=== PATIENT | female | born 1955 | race Caucasian/White ===

== ENCOUNTER → 2017-04-15 | Outpatient (CLI) | payer BC ==
--- NOTE | 2017-04-20 08:12 | MM ---
Reason for exam: screening (asymptomatic). History: Patient is postmenopausal. Physical Findings: A clinical breast exam by your physician is recommended on an annual basis and results should be correlated with mammographic findings. MG Screening Mammo w CAD Bilateral CC and MLO view(s) were taken. No prior studies available for comparison. The breast tissue is almost entirely fat. There is no discrete abnormality. ASSESSMENT: Benign, BI-RAD 2 RECOMMENDATION: Routine screening mammogram of both breasts in 1 year.
== END | disposition home or self-care (01) ==
LOC: RADMAMWWP 14:39
PROVIDERS: ATTEND Family Medicine
DX: Z12.31 Encounter for screening mammogram for malignant neoplasm of breast (principal)

== ENCOUNTER → 2017-06-23 | Day surgery (SDC) | payer BC ==
[2017-06-22 08:55] VITALS: BMI 40.5
[~2017-06-23] MED LIST: LACTATED RINGERS 1,000 ML IV SCH; LIDOCAINE 1% 20 ML VIAL (10MG/ML) FOR IV START INTRADERMA ONE; LIDOCAINE 1% INJ 10MG/ML (20 ML MDV) ONE; PROPOFOL 10 MG/ML 20 ML VIAL IV ONE
--- NOTE | 2017-06-23 08:51 | P.GSHP ---
History of Present Illness H&P Date: 06/23/17 CHIEF COMPLAINT: Colon screen HISTORY OF PRESENT ILLNESS: The patient is a 61-year-old female who presents for colon screen. Lower endoscopy was offered for further evaluation and management. PAST MEDICAL HISTORY: Please see list. PAST SURGICAL HISTORY: Please see list. MEDICATIONS: Please see list. ALLERGIES: Please see list. SOCIAL HISTORY: No illicit drug use FAMILY HISTORY: No reports of Crohn disease or ulcerative colitis. REVIEW OF ORGAN SYSTEMS: CONSTITUTIONAL: No reports of fevers or chills. PHYSICAL EXAM: VITAL SIGNS: Stable GENERAL: Well-developed pleasant in no acute distress. HEENT: No scleral icterus. Extraocular movements grossly intact. Moist buccal mucosa. NECK: Supple without lymphadenopathy. CHEST: Unlabored respirations. Equal bilateral excursions. CARDIOVASCULAR: Regular rate and rhythm. Distal 2+ pulses. ABDOMEN: Soft, nontender, nondistended. MUSCULOSKELETAL: No clubbing, cyanosis, or edema. ASSESSMENT: 1. Colon screen. PLAN: 1. Recommend proceeding with a lower endoscopy Past Medical History Past Medical History: Diabetes Mellitus History of Any Multi-Drug Resistant Organisms: None Reported Past Surgical History: Orthopedic Surgery Additional Past Surgical History / Comment(s): FOOT SPUR, RIGHT ROTATOR CUFF, THUMB-TRIGGER. Past Anesthesia/Blood Transfusion Reactions: No Reported Reaction Past Psychological History: No Psychological Hx Reported Smoking Status: Never smoker Past Alcohol Use History: None Reported Past Drug Use History: None Reported - Past Family History Brother(s) Family Medical History: Cancer Additional Family Medical History / Comment(s): THROAT CANCER Sister(s) Family Medical History: Cancer Additional Family Medical History / Comment(s): LUNG CANCER Medications and Allergies Home Medications Medication Instructions Recorded Confirmed Type Hydrochlorothiazide 25 mg PO QAM 01/06/16 06/23/17 History metFORMIN HCL [Glucophage] 500 mg PO BID 06/23/17 06/23/17 History Allergies Allergy/AdvReac Type Severity Reaction Status Date / Time No Known Allergies Allergy Verified 06/22/17 08:41
[2017-06-23 08:52] VITALS: TEMP 98.1
[2017-06-23 09:06] LABS: Glucose,Whole Blood 128 mg/dL (75-99)
--- NOTE | 2017-06-23 09:43 | P.PCN ---
Date of Procedure: 06/23/17 Description of Procedure: PREOPERATIVE DIAGNOSIS: Colonoscopy screening. POSTOPERATIVE DIAGNOSIS: Colonoscopy screening, high risk. External hemorrhoids, grade 4. Family history of colon polyps. OPERATION: Colonoscopy to the ileocecal valve and appendiceal orifice. SURGEON: Fely Lang MD. ANESTHESIA: MAC. INDICATIONS: The patient is a 61-year-old female who presents for colonoscopy screening. Benefits and risks were described and informed consent was obtained. DESCRIPTION OF PROCEDURE: The patient had undergone Gatorade, MiraLAX and Dulcolax prep. She had been brought into the operating room and laid in the left lateral decubitus position. After adequate intravenous sedation, the rectum was examined with 2% lidocaine jelly. External hemorrhoids were encountered. The rectal tone was within normal limits. No lesions were palpated in the rectal vault. An Olympus colonoscope was advanced until the ileocecal valve and appendiceal orifice were clearly viewed. The prep was excellent with clear visualization of the mucosal folds. The scope was removed with visualization of each mucosal fold. The large colon diverticuli were found. No colonic polyps were found. No evidence of focal colitis was found. Retroflexion of the scope demonstrated grade 3 internal hemorrhoids without active bleeding or inflammation. The colon was desufflated. The patient had tolerated the procedure well. Withdrawal time was over 6 minutes. FINDINGS: Internal hemorrhoids, grade 1 External prolapsed hemorrhoids, grade 4. No arteriovenous malformations. No adenomatous polyps. No focal colitis. RECOMMENDATIONS: Lower endoscopy in 5 years, 2021, per screening guidelines for family history of colon polyps or cancer. Plan - Discharge Summary Discharge Rx Participant: No New Discharge Prescriptions: No Action Hydrochlorothiazide 25 mg PO QAM metFORMIN HCL [Glucophage] 500 mg PO BID Discharge Medication List Hydrochlorothiazide 25 mg PO QAM 01/06/16 [History] metFORMIN HCL [Glucophage] 500 mg PO BID 06/23/17 [History] Follow up Appointment(s)/Referral(s): Fely Lang MD [STAFF PHYSICIAN] - As Needed Patient Instructions/Handouts: *[facility] - (Anesthesia) Endoscopy Discharge Instructions Activity/Diet/Wound Care/Special Instructions: Repeat colonoscopy in 5 years, 2021. Discharge Disposition: HOME SELF-CARE
[2017-06-23 10:06] VITALS: BP 118/62; PULSE 72; RESP 18
== END | disposition home or self-care (01) ==
LOC: ORWHC2ENDO 08:17
PROVIDERS: ATTEND Surgery Plastic and Reconstructive Surgery
DX: Z12.11 Encounter for screening for malignant neoplasm of colon (principal); K64.3 Fourth degree hemorrhoids; Z83.71 Family history of colonic polyps; E11.9 Type 2 diabetes mellitus without complications; I10 Essential (primary) hypertension; Z79.84 Long term (current) use of oral hypoglycemic drugs; Z79.899 Other long term (current) drug therapy
CPT/HCPCS: J2001; J2704; G0105; 45378

== ENCOUNTER → 2017-12-03 | Outpatient (CLI) | payer BC ==
--- NOTE | 2017-12-03 16:08 | XR ---
Lumbar spine HISTORY: Low back pain 3 views of the lumbar spine No comparisons There is a dextroscoliosis centered at L2. Multilevel spondylosis is present. Calcification is superi mposed over the left kidney measuring approximately 17 mm in greatest dimension. Minimal anterolisthe sis grade 1 L5-S1, retrolisthesis grade 1 L4-5 and L2-3. Loss of disc height present at the intervert ebral levels, there is vacuum phenomenon at L4-5. Sclerosis present in the posterior elements of the lower lumbar spine. Bone mineralization is reduced. IMPRESSION: Degenerative disc disease, facet arthropathy. Scoliosis. Left-sided nephrolithiasis.
== END ==
LOC: RADXRMAIN 14:21
PROVIDERS: ATTEND Family Medicine
DX: M51.36 Other intervertebral disc degeneration, lumbar region (principal); M46.96 Unspecified inflammatory spondylopathy, lumbar region; M41.9 Scoliosis, unspecified; N20.0 Calculus of kidney
CPT/HCPCS: 72100

== ENCOUNTER → 2018-08-08 | Outpatient (CLI) | payer BC ==
--- NOTE | 2018-08-11 10:42 | MM ---
Reason for exam: screening (asymptomatic). Last mammogram was performed 1 year and 4 months ago. History: Patient is postmenopausal. Physical Findings: A clinical breast exam by your physician is recommended on an annual basis and results should be correlated with mammographic findings. MG Screening Mammo w CAD Bilateral CC, MLO, and XCCL view(s) were taken. Prior study comparison: April 15, 2017, bilateral MG screening mammo w CAD. There are scattered fibroglandular densities. Stable benign calcifications in the left breast. There is no discrete abnormality. No significant changes when compared with prior studies. ASSESSMENT: Benign, BI-RAD 2 RECOMMENDATION: Routine screening mammogram of both breasts in 1 year.
== END | disposition home or self-care (01) ==
LOC: RADMAMWWP 08:02
PROVIDERS: ATTEND Family Medicine
DX: Z12.31 Encounter for screening mammogram for malignant neoplasm of breast (principal)
CPT/HCPCS: 77067

== ENCOUNTER → 2019-07-11 | Outpatient (CLI) | payer BC ==
[2019-07-11 15:02] LABS: Basophils # (A) 0.2 k/uL (0-0.2); Basophils % (A) 3 %; Eosinophils # (A) 0.2 k/uL (0-0.7); Eosinophils % (A) 3 %; HGB 13.1 gm/dL (11.4-16.0); Lymphocytes # (A) 2.3 k/uL (1.0-4.8); Lymphocytes % (A) 30 %; MCH 29.8 pg (25.0-35.0); MCHC 32.7 g/dL (31.0-37.0); MCV 91.1 fL (80.0-100.0); Mean Platelet Volume 7.4; Monocytes # (A) 0.3 k/uL (0-1.0); Monocytes % (A) 4 %; Neutrophils # (A) 4.5 k/uL (1.3-7.7); Neutrophils % (A) 59 %; Platelet Count 320 k/uL (150-450); RBC 4.39 m/uL (3.80-5.40); RDW 12.5 % (11.5-15.5); WBC 7.7 k/uL (3.8-10.6)
[2019-07-11 15:09] LABS: Albumin 4.5 g/dL (3.5-5.0); Calcium 10.2 mg/dL (8.4-10.2); Potassium 4.4 mmol/L (3.5-5.1); Total Bilirubin 0.4 mg/dL (0.2-1.3); Total Protein 7.5 g/dL (6.3-8.2)
--- NOTE | 2019-07-12 04:49 | CT ---
EXAMINATION TYPE: CT pelvis wo/w con DATE OF EXAM: 07/11/2019 COMPARISON: NONE HISTORY: 63-year-old female LLQ pain TECHNIQUE: Contiguous axial scanning of the pelvis before and after administration of 100 ml Isovue 3 00 IV contrast. Delayed images through the pelvis and coronal/sagittal reconstructions performed. CT DLP: 1722.9 mGycm Automated exposure control for dose reduction was used. FINDINGS: Visualized lower abdomen shows a normal appendix. Scattered mild stool. Mild diverticular change with in the visualized colon. No lower abdominal mesenteric or retroperitoneal or pelvic lymphadenopathy is identified. No dilated small bowel or free air. Bladder is urine distended. Uterus anteverted. Both ovaries are visualized. No abnormal fluid collect ion in the pelvis. Bones: Moderate degenerative disc disease L4-L5 with mild disc height loss, bulging disc, and vacuum phenomenon particularly towards the right. There is a degenerated levoconvex curvature. Facet arthrop athy towards the right. Benign-appearing focal sclerosis anterior aspect of the medial right iliac kortney ne suggesting a bone island. IMPRESSION: 1. SCATTERED MILD DIVERTICULOSIS ALONG THE VISUALIZED COLON WITHOUT ACUTE DIVERTICULITIS. 2. NO ADNEXAL ABNORMALITY OR PELVIC FREE FLUID. 3. DEGENERATIVE LEVOCONVEX SCOLIOTIC CURVATURE OF THE VISUALIZED LOWER LUMBAR SPINE.
== END ==
LOC: RADCTMAIN 14:29
PROVIDERS: ATTEND Family Medicine
DX: K57.30 Diverticulosis of large intestine without perforation or abscess without bleeding (principal); R10.32 Left lower quadrant pain
CPT/HCPCS: 80053; 83690; 85025; 72194; 36415; Q9967

== ENCOUNTER → 2021-02-04 | Outpatient (CLI) | payer BC ==
[2021-02-04 17:51] LABS: African American GFR (CKD) >90 (>60 ml/min/1.73 sqM); Blood Urea Nitrogen 18 mg/dL (7-17); Non-African American GFR(CKD) 87 (>60 ml/min/1.73 sqM)
--- NOTE | 2021-02-06 17:12 | CT ---
EXAMINATION TYPE: CT abdomen pelvis wo/w con DATE OF EXAM: 02/04/2021 COMPARISON: CT pelvis 07/11/2019 HISTORY: LLQ pain CT DLP: 2733.4 mGycm Automated exposure control for dose reduction was used. TECHNIQUE: Helical acquisition of images was performed from the lung bases through the pelvis. CONTRAST: Performed with Oral Contrast and without and with IV Contrast, patient injected with 100 mL of Isovue 300. Patient received oral contrast. FINDINGS: LUNG BASES: No significant abnormality is appreciated. LIVER/GB: Patient is post cholecystectomy. No evident liver mass. PANCREAS: No significant abnormality is seen. SPLEEN: No significant abnormality is seen. ADRENALS: No significant abnormality is seen. KIDNEYS: Left kidney shows a calcification at the level of the renal pelvis measuring 2 cm in cephala d to caudal dimension by 17 mm in transverse dimension by 13 mm in AP dimension, fatty lesion is pres ent at the upper pole measuring 17 mm, likely angiomyolipoma, no hydronephrosis bilaterally. FREE AIR: No free air is visualized. RETROPERITONEAL ADENOPATHY: None visualized REPRODUCTIVE ORGANS: No significant abnormality is seen URINARY BLADDER: No significant abnormality is seen. PELVIC ADENOPATHY: None visualized. OSSEOUS STRUCTURES: Degenerative disc changes, facet arthropathy, spinal curvature noted in the lumb ar spine, retrolisthesis grade 1 L3-4, L2-3 BOWEL: Diverticular changes associated with the colon in the sigmoid region, contrast has not filled the colon time of the exam. OTHER: IMPRESSION: DIVERTICULOSIS. NONOBSTRUCTIVE LEFT RENAL PELVIC CALCULUS, DEGENERATIVE DISC DISEASE AND FACET ARTHRO DIANN, SPONDYLOLISTHESIS.
== END | disposition home or self-care (01) ==
LOC: RADCTMAIN 16:37
PROVIDERS: ATTEND Family Medicine
DX: K57.30 Diverticulosis of large intestine without perforation or abscess without bleeding (principal); N20.0 Calculus of kidney; M51.36 Other intervertebral disc degeneration, lumbar region; M47.816 Spondylosis without myelopathy or radiculopathy, lumbar region; M43.16 Spondylolisthesis, lumbar region
CPT/HCPCS: 82565; 84520; 74178; 36415; Q9967

== ENCOUNTER → 2021-02-25 | Outpatient (CLI) | payer BC ==
--- NOTE | 2021-02-26 09:15 | MM ---
Reason for exam: screening (asymptomatic). Last mammogram was performed 1 year and 5 months ago. History: Patient is postmenopausal. Took hormonal contraceptives for 2 years. Physical Findings: A clinical breast exam by your physician is recommended on an annual basis and results should be correlated with mammographic findings. MG Screening Mammo w CAD Bilateral CC, MLO, and XCCL view(s) were taken. Prior study comparison: September 21, 2019, bilateral MG screening mammo w CAD. August 08, 2018, bilateral MG screening mammo w CAD. There are scattered fibroglandular densities. There is chronic nodularity bilaterally. There is no dominant lesion. No significant changes when compared with prior studies. ASSESSMENT: Benign, BI-RAD 2 RECOMMENDATION: Routine screening mammogram of both breasts in 1 year.
== END | disposition home or self-care (01) ==
LOC: RADMAMWWP 08:32
PROVIDERS: ATTEND Family Medicine
DX: Z12.31 Encounter for screening mammogram for malignant neoplasm of breast (principal); Z78.0 Asymptomatic menopausal state; Z79.3 Long term (current) use of hormonal contraceptives
CPT/HCPCS: 77067

== ENCOUNTER → 2022-06-18 | Outpatient (CLI) | payer MEDICARE ==
--- NOTE | 2022-06-19 08:27 | MM ---
Reason for Exam: Screening (asymptomatic). Last mammogram was performed 1 year(s) and 4 month(s) ago. Patient History: Menarche at age 16. First Full-Term at age 31. Late child-bearing (after 31). Postmenopausal. Patient used Hormonal Contraceptives for 2 years. Risk Values: Marta 5 year model risk: 2.1%. NCI Lifetime model risk: 7.8%. Prior Study Comparison: 08/08/2018 Bilateral Screening Mammogram, [facility]. 09/21/2019 Bilateral Screening Mammogram, [facility]. 02/25/2021 Bilateral Screening Mammogram, [facility]. Tissue Density: The breast tissue is almost entirely fat. Findings: Analyzed By CAD. There is no suspicious group of microcalcifications or new suspicious mass in either breast. Overall Assessment: Negative, BI-RAD 1 Management: Screening Mammogram of both breasts in 1 year. A clinical breast exam by your physician is recommended on an annual basis and results should be correlated with mammographic findings. Electronically signed and approved by: Luca Caballero M.D. Radiologis
== END | disposition home or self-care (01) ==
LOC: RADMAMWWP 16:06
PROVIDERS: ATTEND Family Medicine
DX: Z12.31 Encounter for screening mammogram for malignant neoplasm of breast (principal); Z78.0 Asymptomatic menopausal state
CPT/HCPCS: 77063; 77067

== ENCOUNTER → 2023-04-07 | Outpatient (CLI) | payer MEDICARE ==
[2023-04-07 16:13] LABS: Appearance,Urine Clear (Clear); Bilirubin,Urine Negative (Negative); Blood,Urine Negative (Negative); Color,Urine Yellow (Yellow); Ketones,Urine Negative (Negative); Nitrite,Urine Negative (Negative); Urobilinogen,Urine 0.2 E.U./DL
[2023-04-07 16:26] LABS: Bacteria,Urine 2+ (None Seen); Basophils # (A) 0.04 X 10*3/uL (0.00-0.10); Basophils % (A) 0.8 %; Eosinophils # (A) 0.11 X 10*3/uL (0.04-0.35); Eosinophils % (A) 2.2 %; HCT 37.9 % (37.2-46.3); HGB 12.7 d/dL (12.0-15.0); Lymphocytes # (A) 2.06 X 10*3/uL (0.90-5.00); Lymphocytes % (A) 41.1 %; MCH 30.6 pg (27.0-32.0); MCHC 33.5 d/dL (32.0-37.0); MCV 91.3 FL (80.0-97.0); Mean Platelet Volume 11.4 FL (9.5-12.2); Monocytes # (A) 0.45 X 10*3/uL (0.20-1.00); NRBC Per 100 WBC 0 X 10*3/uL (0.00-0.01); Neutrophils # (A) 2.34 X 10*3/uL (1.80-7.70); Neutrophils % (A) 46.7 %; Platelet Count 256 X 10*3/uL (140-440); RBC 4.15 X 10*6/uL (4.10-5.20); RDW 12.7 % (11.5-14.5); Uric Acid Crystals,Urine Present; WBC 5.01 X 10*3/uL (4.50-10.00)
[2023-04-07 16:31] LABS: Blood Urea Nitrogen 20.4 mg/dL (9.0-27.0); Calcium 9.9 mg/dL (8.7-10.3); Carbon Dioxide 26.3 mmol/L (21.6-31.8); Chloride 102 mmol/L (96-109); Glucose 106 mg/dL (70-110); Sodium 138 mmol/L (135-145)
== END | disposition home or self-care (01) ==
LOC: LABPAT 09:10
PROVIDERS: ATTEND Urology
DX: Z01.812 Encounter for preprocedural laboratory examination (principal); N20.0 Calculus of kidney; R31.29 Other microscopic hematuria
CPT/HCPCS: 36415; 80048; 81001; 85025; 87086

== ENCOUNTER 2023-04-14 06:03 | Day surgery (SDC) | payer MEDICARE ==
--- NOTE | 2023-04-13 12:51 | P.GSHP ---
History of Present Illness H&P Date: 04/13/23 7 yo female with a large[>2cm] lt renal stone causing pain an obstruction. SHe comes for a left pcnl. The risks an alternatives have been discussed. - Constitutional Constitutional: Denies chills, Denies fever - EENT Eyes: denies blurred vision, denies pain Ears, nose, mouth and throat: Denies headache, Denies sore throat - Cardiovascular Cardiovascular: Denies chest pain, Denies shortness of breath - Respiratory Respiratory: Denies cough, Denies 7 - Gastrointestinal Gastrointestinal: Denies abdominal pain, Denies diarrhea, Denies nausea, Denies vomiting - Genitourinary (Female) Genitourinary: Denies dysuria, Denies hematuria - Genitourinary (Male) Genitourinary: Denies dysuria, Denies hematuria - Musculoskeletal Musculoskeletal: Denies myalgias - Integumentary Integumentary: Denies pruritus, Denies rash - Neurological Neurological: Denies numbness, Denies weakness - Psychiatric Psychiatric: Denies anxiety, Denies depression - Endocrine Endocrine: Denies fatigue, Denies weight change Past Medical History Past Medical History: Diabetes Mellitus, Hyperlipidemia Additional Past Medical History / Comment(s): kideny stones History of Any Multi-Drug Resistant Organisms: None Reported Past Surgical History: Section, Cholecystectomy, Orthopedic Surgery, Tonsillectomy Additional Past Surgical History / Comment(s): FOOT SPUR, RIGHT ROTATOR CUFF, THUMB-TRIGGER. Past Anesthesia/Blood Transfusion Reactions: No Reported Reaction Smoking Status: Never smoker - Past Family History Father Family Medical History: Myocardial Infarction ([place]) Mother Family Medical History: Congestive Heart Failure (CHF) Brother(s) Family Medical History: Cancer Additional Family Medical History / Comment(s): THROAT CANCER Sister(s) Family Medical History: Cancer Additional Family Medical History / Comment(s): LUNG CANCER Medications and Allergies Home Medications Medication Instructions Recorded Confirmed Type metFORMIN HCL [Glucophage] 500 mg PO DAILY 06/23/17 04/09/23 History Lisinopril-Hctz 10-12.5 mg 1 tab PO DAILY 04/09/23 04/09/23 History [Zestoretic 10-12.5] Rosuvastatin Calcium 10 mg PO DAILY 04/09/23 04/09/23 History Allergies Allergy/AdvReac Type Severity Reaction Status Date / Time No Known Allergies Allergy Verified 04/09/23 10:59 Surgical - Exam - General well developed, well nourished, no distress - Eyes normal ocular movement, no icteric - ENT no hearing loss, no congestion - Neck no masses, trachea midline - Respiratory normal respiratory effort, clear to auscultation - Abdomen Abdomen: soft, non tender, no guarding, no rigid, no rebound - Integumentary no rash, no abnormal pigmentation - Neurologic no disoriented, no combative - Psychiatric oriented to time, oriented to person, oriented to place, speech is normal, memory intact Results - Imaging Abdominal x-ray: report reviewed, image reviewed CT scan - abdomen: report reviewed, image reviewed CT scan - pelvis: report reviewed, image reviewed Assessment and Plan Assessment: Impression: left renal stone, large. Plan: left pcnl
--- NOTE | 2023-04-14 06:46 | XR ---
EXAMINATION TYPE: XR KUB DATE OF EXAM: 04/14/2023 6:19 AM CLINICAL HISTORY: Left renal calculus TECHNIQUE: Single supine KUB image of the abdomen is obtained. COMPARISON: CT abdomen and pelvis February 04, 2021. FINDINGS: Dominant 2.7 cm calculus left kidney L2-L3 level is increased in size from prior CT. No rig ht-sided nephrolithiasis. Overall nonobstructive bowel gas pattern. Cholecystectomy clips are redemonstrated. There is scoliosi s and multilevel spurring and disc space narrowing in the lumbar spine. IMPRESSION: As above.
[2023-04-14] MEDS ORDERED: droPERidol 5 MG/2 ML VIAL IVP ONE (06:49)
[2023-04-14] MEDS ORDERED: LIDOCAINE 1% (10MG/ML) FOR IV START INTRADERMA PRN (06:49)
[2023-04-14] MEDS ORDERED: ONDANSETRON 4 MG/2 ML VIAL IVP ONE ×2 (06:49→07:16)
[2023-04-14] MEDS ORDERED: HYDROmorphone 0.5 MG/0.5 ML SYRINGE IVP PRN (07:00)
[2023-04-14 07:11] LABS: Glucose,Whole Blood 117 mg/dL (70-110)
[2023-04-14] MEDS: LACTATED RINGERS 1,000 ML IV SCH (07:16)
[2023-04-14] MEDS ORDERED: DEXAMETHASONE SOD PHOSPHATE 4 MG/ML 1 ML VIAL IVP ONE (07:17)
[2023-04-14] MEDS ORDERED: SUCCINYLCHOLINE CHLORIDE 200 MG/10 ML VIAL IV ONE (07:34)
[2023-04-14] MEDS ORDERED: GLYCOPYRROLATE 0.2 MG/ML 2 ML VIAL ONE (07:34)
[2023-04-14] MEDS ORDERED: WATER FOR INJECTION, STERILE 10 ML VIAL IV ONE (07:34)
[2023-04-14] MEDS ORDERED: MIDAZOLAM 2 MG/2 ML VIAL ONE (07:34)
[2023-04-14] MEDS ORDERED: VASOPRESSIN 20 UNIT/ML 1 ML VIAL ONE (07:34)
[2023-04-14] MEDS ORDERED: fentaNYL (PF) 50 MCG/ML 2 ML AMP ONE (07:34)
[2023-04-14] MEDS ORDERED: PROPOFOL 10 MG/ML 20 ML VIAL IV ONE (07:34)
[2023-04-14] MEDS ORDERED: PHENYLEPHRINE-0.9% NACL SYG 1,000 MCG/10 ML SYRINGE ONE (07:34)
[2023-04-14] MEDS ORDERED: LIDOCAINE 2% INJ 20 MG/ML (2 ML VIAL) ONE (07:34)
[2023-04-14] MEDS ORDERED: IOPAMIDOL-370 100ML BTL MISCELLANE ONE (07:51)
[2023-04-14] MEDS ORDERED: LACTATED RINGERS 1,000 ML IV ONE (08:54)
[2023-04-14] MEDS ORDERED: NALOXONE 0.4 MG/ML 1 ML VIAL IV PRN (09:44)
[2023-04-14] MEDS ORDERED: HYDROmorphone PCA 10 MG/50 ML BAG IV PRN (09:44)
--- NOTE | 2023-04-14 09:47 | FL ---
EXAMINATION TYPE: FL Perc Nephrostomy New Access DATE OF EXAM: 04/14/2023 COMPARISON: NONE HISTORY: Fluoroscopy time TECHNIQUE: Fluoroscopy. FINDINGS: Fluoroscopy time 4.16 DAP provided. IMPRESSION: As Above.
[2023-04-14] MEDS ORDERED: ONDANSETRON 4 MG/2 ML VIAL IVP PRN (09:48)
[2023-04-14] MEDS ORDERED: ACETAMINOPHEN TAB 325 MG TAB PO PRN (09:48)
[2023-04-14] MEDS ORDERED: MAG HYDROX/AL HYDROX/SIMETH 30 ML CUP PO PRN (09:48)
--- NOTE | 2023-04-14 09:55 | P.OP ---
Date of Procedure: 04/14/23 Preoperative Diagnosis: Left renal stone (large greater than 2 cm) Postoperative Diagnosis: Same Procedure(s) Performed: Cystoscopy, left percutaneous nephrostomy (Dr. Edge, percutaneous nephrostolithotomy at ultrasound, placement of 10 J nephrostomy tube left Anesthesia: LORENZO Surgeon: Fletcher Edge Estimated Blood Loss (ml): 300 Pathology: other (Stone) Condition: stable Disposition: PACU Indications for Procedure: Patient is a 2.5 cm left renal pelvic stone with pain and obstruction and she comes for percutaneous nephrostolithotomy alternatives have been discussed Description of Procedure: Patient brought to the operating suite. Given a general anesthetic on the transport gurney. She's placed in a frog position with a sterile prep and drape. Cystoscopy a Foroblique lens and 21-Czech sheath identifies a normal left ureteral orifice. It is intubated with a 5-Czech occluding balloon catheter passed up into the left renal pelvis. It is secured to a 16-Czech Clifton. The patient's placed in a prone position with sterile prep and drape to the left flank. Left Percutaneous access was performed by myself and will be dictated separately. I then dilate the tract to 30-Czech and introduced the working sheath into the middle pole calyx that I have accessed. Introduced the rigid scope into the collecting system. I then with ultrasound break the stone into smaller fragments and grasp the larger fragments and remove them from the c ollecting system. I then pass a flexible scope throughout the collecting system and remove any remaining fragments. At the end of the procedure a 20-Czech reentry left nephrostomy tube was placed. It is secured to the skin with 2-0 silk. The patient is awakened and returned recovery room good condition. She tolerated procedure well blood loss is about 300 mL.
--- NOTE | 2023-04-14 09:58 | P.PCN ---
Date of Procedure: 04/14/23 Preoperative Diagnosis: Left renal stone, large Postoperative Diagnosis: Same Procedure(s) Performed: Left percutaneous nephrostomy access Surgeon: Fletcher Edge Indications for Procedure: The patient comes for left percutaneous nephrostolithotomy and will require percutaneous access Description of Procedure: The patient has been previously prepped and draped and placed in a flank position. I injected air through the ureteral catheter previously placed overlying the collecting system. I first attempted access the lower pole and in the upper pole calyces but I'm unable to do an adequate angle into the collecting system. I then go to the middle pole calyx. I introduced the Chiba needle into the posterior middle pole calyx. Through that the cope wires passed into the collecting system. Over the cope wires and passed a small into introducer/catheter. I then am able to pass an 035 wire down the ureter into the bladder. I removed the introducer catheter and passed a 8 and 10-Central African reentry catheters. I removed the 8 catheter and passed a 035 super stiff wire down into the bladder. Over the superstiff wire then dilate the tract to 30- Central African to introduce the working sheath in the collecting system.
[2023-04-14 10:12] LABS: Glucose,Whole Blood 176 mg/dL (70-110)
[2023-04-14] MEDS: SODIUM CHLORIDE 0.45% 1,000 ML IV SCH ×2 (11:18→22:17)
[2023-04-14] MEDS: KETOROLAC 15 MG/ML 1 ML VIAL IVP PRN (11:47)
[2023-04-14] MEDS ORDERED: DEXTROSE 50% SYRINGE 50 ML IVP PRN ×2 (17:04)
--- NOTE | 2023-04-14 17:07 | P.CONS ---
History of Present Illness - Reason for Consult Consult date: 04/14/23 - History of Present Illness Patient is a 67-year-old female with PMH of diabetes mellitus, hypertension, dyslipidemia that presents to [facility] for elective surgery. She underwent cystoscopy and left percutaneous nephrostomy with Dr. Edge. [facility] has been consulted for medical management of this patient. Patient currently reports well-controlled pain. 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 Currently with Clifton catheter draining 550 mL of urine. Estimated blood loss 300 mL during her procedure. She reports no other complaints. Pertinent positives and negatives as discussed in HPI, a complete review of systems was performed and all other systems are negative. General: non toxic, no distress, appears at stated age Derm: warm, dry Head: atraumatic, normocephalic, symmetric Eyes: EOMI, no lid lag, anicteric sclera Cardiovascular: S1S2 reg, no murmur Lungs: CTA bilateral, no rhonchi, no rales , no accessory muscle use Ext: no gross muscle atrophy, no edema, no contractures Neuro: no focal neuro deficits Psych: Alert, oriented, appropriate affect Diabetes mellitus Hypertension Dyslipidemia Based on my assessment of this patient, this patient meets a moderate complexity level of care. Patient has a chronic diagnosis of diabetes mellitus, hypertension, dyslipidemia. Diabetes mellitus: ISS. Accuchecks ACHS. Hypoglycemic precautions. Metformin 500 mg PO QD. Hypertension: Hold Lisinopril-HCTZ due to borderline low BP. Dyslipidemia: Crestor 10 mg PO QD. SCD for DVT prophylaxis. FULL CODE. Decision maker: Daughter I have reviewed the following staffing consultant notes: Urology operative note and H&P. I have reviewed the results of the following tests: POC glucose ranging from 111-176. I have ordered the following tests: CBC, BMP. I have discussed the care of this patient with the following independent historian: I have independently interpreted the following test below: I have discussed the management of this patient with the following physician: Past Medical History Past Medical History: Diabetes Mellitus, Hyperlipidemia Additional Past Medical History / Comment(s): kideny stones History of Any Multi-Drug Resistant Organisms: None Reported Past Surgical History: Section, Cholecystectomy, Orthopedic Surgery, Tonsillectomy Additional Past Surgical History / Comment(s): FOOT SPUR, RIGHT ROTATOR CUFF, THUMB-TRIGGER. Past Anesthesia/Blood Transfusion Reactions: No Reported Reaction Past Psychological History: No Psychological Hx Reported Smoking Status: Never smoker Past Alcohol Use History: None Reported Past Drug Use History: None Reported - Past Family History Father Family Medical History: Myocardial Infarction ([place]) Mother Family Medical History: Congestive Heart Failure (CHF) Brother(s) Family Medical History: Cancer Additional Family Medical History / Comment(s): THROAT CANCER Sister(s) Family Medical History: Cancer Additional Family Medical History / Comment(s): LUNG CANCER Medications and Allergies Home Medications Medication Instructions Recorded Confirmed Type metFORMIN HCL [Glucophage] 500 mg PO DAILY 06/23/17 04/14/23 History Lisinopril-Hctz 10-12.5 mg 1 tab PO DAILY 04/09/23 04/14/23 History [Zestoretic 10-12.5] Rosuvastatin Calcium 10 mg PO DAILY 04/09/23 04/14/23 History Allergies Allergy/AdvReac Type Severity Reaction Status Date / Time No Known Allergies Allergy Verified 04/14/23 06:54 Physical Exam Vitals: Vital Signs Temp Pulse Pulse Pulse Resp BP BP 04/14/23 12:48 97.6 F 64 16 98/66 04/14/23 12:18 63 16 95/63 04/14/23 11:48 64 16 107/73 04/14/23 11:33 74 16 114/76 04/14/23 11:18 68 16 109/72 04/14/23 11:03 97.1 F L 72 16 112/64 04/14/23 10:33 73 16 104/56 04/14/23 10:19 86 16 105/57 04/14/23 10:03 72 16 110/56 04/14/23 09:48 97 F L 82 16 109/56 04/14/23 07:10 97.0 F L 68 16 127/60 Pulse Ox 04/14/23 12:48 95 04/14/23 12:18 97 04/14/23 11:48 98 04/14/23 11:33 88 L 04/14/23 11:18 93 L 04/14/23 11:03 96 04/14/23 10:33 93 L 04/14/23 10:19 99 04/14/23 10:03 99 04/14/23 09:48 98 04/14/23 07:10 100 Intake and Output 04/14/23 04/14/23 04/14/23 06:59 14:59 22:59 Intake Total 1850 Output Total 850 Balance 1000 Intake: IV 1850 Output: Urine 550 Estimated Blood Loss 300 Other: Weight 92.9 kg Results Labs: Abnormal Lab Results - Last 24 Hours (Table) 04/14/23 04/14/23 Range/Units 07:05 10:09 POC Glucose (mg/dL) 117 H 176 H (70-110) mg/dL
[2023-04-15 00:40] LABS: Glucose,Whole Blood 136 mg/dL (70-110)
[2023-04-15] MEDS: INSULIN ASPART (NovoLOG) 100 UNIT/ML VIAL SQ SCH ×5 (01:34→16:48)
[2023-04-15 06:11] LABS: HCT 29.2 % (34.0-46.0); HGB 9.8 gm/dL (11.4-16.0); MCH 30.7 pg (25.0-35.0); MCHC 33.7 g/dL (31.0-37.0); MCV 91.2 fL (80.0-100.0); Mean Platelet Volume 9.3; Platelet Count 210 k/uL (150-450); RDW 12.9 % (11.5-15.5); WBC 8.7 k/uL (3.8-10.6)
[2023-04-15 07:03] LABS: African American GFR (CKD) 81 (>60 ml/min/1.73 sqM); Anion Gap 4 mmol/L; Blood Urea Nitrogen 19 mg/dL (7-17); Calcium 8.3 mg/dL (8.4-10.2); Carbon Dioxide 26 mmol/L (22-30); Chloride 102 mmol/L (98-107); Glucose 111 mg/dL (74-99); Non-African American GFR(CKD) 70 (>60 ml/min/1.73 sqM); Potassium 4.1 mmol/L (3.5-5.1); Sodium 132 mmol/L (137-145)
[2023-04-15 07:38] LABS: Glucose,Whole Blood 117 mg/dL (70-110)
--- NOTE | 2023-04-15 07:46 | P.PN ---
Subjective Progress Note Date: 04/15/23 First postoperative day from a left percutaneous nephrostolithotomy. Her pain is mild to moderate. Her activity has been minimal. She is not nauseated. Objective - Vital Signs Vital signs: Vital Signs Temp 97.9 F 04/15/23 00:00 Pulse 59 L 04/15/23 04:00 Resp 16 04/15/23 04:00 BP 100/57 04/15/23 04:00 Pulse Ox 96 04/15/23 04:00 FiO2 Intake & Output 04/14/23 04/15/23 04/15/23 18:59 06:59 18:59 Intake Total 1850 Output Total 850 850 Balance 1000 -850 Weight 92.9 kg Intake: IV 1850 Output: Drainage 300 Left Posterior Back 300 Urine 550 550 Uretheral (Clifton) 350 Estimated Blood Loss 300 - Genitourinary Genitourinary Comment(s): Urine is clear in the bladder. The nephrostomy tube urine is light pink - Labs CBC & Chem 7: 04/15/23 05:45 04/15/23 05:45 Labs: Abnormal Lab Results - Last 24 Hours (Table) 04/14/23 04/15/23 04/15/23 Range/Units 10:09 00:33 05:45 RBC 3.20 L (3.80-5.40) m/uL Hgb 9.8 L (11.4-16.0) gm/dL Hct 29.2 L (34.0-46.0) % Sodium (137-145) mmol/L BUN (7-17) mg/dL Glucose (74-99) mg/dL POC Glucose (mg/dL) 176 H 136 H (70-110) mg/dL Calcium (8.4-10.2) mg/dL 04/15/23 04/15/23 Range/Units 05:45 07:26 RBC (3.80-5.40) m/uL Hgb (11.4-16.0) gm/dL Hct (34.0-46.0) % Sodium 132 L (137-145) mmol/L BUN 19 H (7-17) mg/dL Glucose 111 H (74-99) mg/dL POC Glucose (mg/dL) 117 H (70-110) mg/dL Calcium 8.3 L (8.4-10.2) mg/dL Assessment and Plan Assessment: Impression: Status post left percutaneous nephrostomy (large). Recommendations: The patient is not quite ready to be discharged home. I will discontinue her Clifton ambulate and feed her regular diet. She should be ready to go home tomorrow.
[2023-04-15] MEDS: KETOROLAC 15 MG/ML 1 ML VIAL IVP PRN ×2 (08:17→18:18)
[2023-04-15] MEDS ORDERED: LISINOPRIL-HCTZ 10-12.5 MG 1 EACH TAB PO SCH (09:00)
[2023-04-15] MEDS ORDERED: metFORMIN 500 MG TAB PO SCH (09:00)
[2023-04-15] MEDS ORDERED: ATORVASTATIN 20 MG TAB PO SCH (09:00)
[2023-04-15] MEDS: LACTATED RINGERS 1,000 ML IV SCH (10:02)
[2023-04-15 12:10] LABS: Glucose,Whole Blood 133 mg/dL (70-110)
--- NOTE | 2023-04-15 13:37 | XR ---
EXAMINATION TYPE: XR KUB DATE OF EXAM: 04/15/2023 COMPARISON: 04/14/2023 HISTORY: Postop TECHNIQUE: One view abdominal series FINDINGS: A left-sided nephroureteral tube seen with multiple small calcifications in the region of the lower p ole renal pelvis the largest measuring 4.5 mm. Scoliosis with degenerative change. Surgical quadrant. Bowel gas pattern nonspecific. Arthropathy of the hips. Mild diffuse. Elevated right hemidiaphragm. IMPRESSION: 1. Left Nephroureteral tube with small additional calcifications seen involving the lower pole and re nal pelvis to largest measuring 4.5 mm
[2023-04-15 16:30] LABS: Glucose,Whole Blood 127 mg/dL (70-110)
--- NOTE | 2023-04-15 17:13 | P.PN ---
Subjective Progress Note Date: 04/15/23 Patient is a 67-year-old female with PMH of diabetes mellitus, hypertension, dyslipidemia that presents to [facility] for elective surgery. She underwent cystoscopy and left percutaneous nephrostomy with Dr. Edge. [facility] has been consulted for medical management of this patient. Patient currently reports well-controlled pain. 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 Currently with Clifton catheter draining 550 mL of urine. Estimated blood loss 300 mL during her procedure. She reports no other complaints. 04/15 Patient was seen and examined. Clifton catheter DC'd. She reports no current pain. Denies any complaints. Urology recommends overnight monitoring. CBC shows Hg 9.8. BMP shows Na 1132, BUN 19, glucose 111, Ca 8.3. General: non toxic, no distress, appears at stated age Derm: warm, dry Head: atraumatic, normocephalic, symmetric Eyes: EOMI, no lid lag, anicteric sclera Cardiovascular: good distal perfusion in all 4 extremities Lungs: breathing comfortably, no accessory muscle use Ext: no gross muscle atrophy, no edema, no contractures Neuro: no focal neuro deficits Psych: Alert, oriented, appropriate affect Acute blood loss anemia Diabetes mellitus Hypertension Dyslipidemia Based on my assessment of this patient, this patient meets a moderate complexity level of care. Patient has a chronic diagnosis of diabetes mellitus, hypertension, dyslipidemia. Acute blood loss anemia: Unknown baseline. Expected result of surgery. Diabetes mellitus: ISS. Accuchecks ACHS. Hypoglycemic precautions. Metformin 500 mg PO QD. Hypertension: Hold Lisinopril-HCTZ due to borderline low BP. Dyslipidemia: Crestor 10 mg PO QD. SCD for DVT prophylaxis. FULL CODE. Decision maker: Daughter I have reviewed the following automotive consultant notes: Urology note I have reviewed the results of the following tests: CBC, BMP, POC glucose ranging from 117-136. I have ordered the following tests: I have discussed the care of this patient with the following independent historian: I have independently interpreted the following test below: I have discussed the management of this patient with the following physician: Objective - Vital Signs Vital signs: Vital Signs Temp 97.9 F 04/15/23 16:00 Pulse 78 04/15/23 16:00 Resp 20 04/15/23 16:00 BP 121/61 04/15/23 16:00 Pulse Ox 97 04/15/23 16:00 FiO2 Intake & Output 04/14/23 04/15/23 04/15/23 18:59 06:59 18:59 Intake Total 1850 280 Output Total 850 850 250 Balance 1000 -850 30 Weight 92.9 kg Intake: IV 1850 Oral 280 Output: Drainage 300 100 Left Posterior Back 300 100 Urine 550 550 150 Uretheral (Clifton) 350 50 Estimated Blood Loss 300 Other: # Voids 1 - Labs CBC & Chem 7: 04/15/23 05:45 04/15/23 05:45 Labs: Abnormal Lab Results - Last 24 Hours (Table) 04/15/23 04/15/23 04/15/23 Range/Units 00:33 05:45 05:45 RBC 3.20 L (3.80-5.40) m/uL Hgb 9.8 L (11.4-16.0) gm/dL Hct 29.2 L (34.0-46.0) % Sodium 132 L (137-145) mmol/L BUN 19 H (7-17) mg/dL Glucose 111 H (74-99) mg/dL POC Glucose (mg/dL) 136 H (70-110) mg/dL Calcium 8.3 L (8.4-10.2) mg/dL 04/15/23 04/15/23 04/15/23 Range/Units 07:26 12:05 16:28 RBC (3.80-5.40) m/uL Hgb (11.4-16.0) gm/dL Hct (34.0-46.0) % Sodium (137-145) mmol/L BUN (7-17) mg/dL Glucose (74-99) mg/dL POC Glucose (mg/dL) 117 H 133 H 127 H (70-110) mg/dL Calcium (8.4-10.2) mg/dL
[2023-04-15] MEDS: SODIUM CHLORIDE 0.45% 1,000 ML IV SCH (17:45)
[2023-04-15] MEDS: HYDROcodone/APAP 5-325MG 1 EACH TAB PO PRN (23:07)
[2023-04-15 23:14] LABS: Glucose,Whole Blood 112 mg/dL (70-110)
[2023-04-16] MEDS: INSULIN ASPART (NovoLOG) 100 UNIT/ML VIAL SQ SCH ×2 (00:02→08:00)
[2023-04-16] MEDS: KETOROLAC 15 MG/ML 1 ML VIAL IVP PRN (02:36)
[2023-04-16] MEDS: HYDROcodone/APAP 5-325MG 1 EACH TAB PO PRN (06:18)
--- NOTE | 2023-04-16 07:57 | P.DS ---
Providers Attending physician: Fletcher Edge Consults: 04/14/23 10:47 Consult Physician Urgent Consulting Provider: Noemy Sharif Consult Reason/Comments: diabetic management Do you want consulting provider notified?: Yes Primary care physician: [facility] Course: She was admitted to the hospital 04/14/23 for a left percutaneous nephrostolithotomy.. She underwent this without difficulty. Other than some di scomfort postoperatively she's done well. KUB shows small fragments remaining. She'll be discharged home today. She'll be set up for a secondary nephrostolithotomy next week. Her condition is good. She'll be given some [place] upon discharge. Patient Condition at Discharge: Good Plan - Discharge Summary Discharge Rx Participant: No New Discharge Prescriptions: New HYDROcodone/APAP 5-325MG [[place] 5-325] 1 tab PO Q4HR PRN #14 tab PRN Reason: Pain No Action metFORMIN HCL [Glucophage] 500 mg PO DAILY Rosuvastatin Calcium 10 mg PO DAILY Lisinopril-Hctz 10-12.5 mg [Zestoretic 10-12.5] 1 tab PO DAILY Discharge Medication List metFORMIN HCL [Glucophage] 500 mg PO DAILY 06/23/17 [History] Lisinopril-Hctz 10-12.5 mg [Zestoretic 10-12.5] 1 tab PO DAILY 04/09/23 [History] Rosuvastatin Calcium 10 mg PO DAILY 04/09/23 [History] HYDROcodone/APAP 5-325MG [[place] 5-325] 1 tab PO Q4HR PRN #14 tab 04/16/23 [Rx] Follow up Appointment(s)/Referral(s): Fletcher Edge MD [STAFF PHYSICIAN] - 04/20/23 (home with n tube) Discharge Disposition: HOME SELF-CARE
[2023-04-16 08:05] LABS: Glucose,Whole Blood 121 mg/dL (70-110)
[2023-04-16 08:19] VITALS: BP 113/63; PULSE 75; RESP 14; TEMP 98
--- NOTE | 2023-04-16 09:01 | P.PN ---
Subjective Progress Note Date: 04/16/23 Patient is a 67-year-old female with PMH of diabetes mellitus, hypertension, dyslipidemia that presents to [facility] for elective surgery. She underwent cystoscopy and left percutaneous nephrostomy with Dr. Edge. [facility] has been consulted for medical management of this patient. Patient currently reports well-controlled pain. 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 Currently with Clifton catheter draining 550 mL of urine. Estimated blood loss 300 mL during her procedure. She reports no other complaints. 04/15 Patient was seen and examined. Clifton catheter DC'd. She reports no current pain. Denies any complaints. Urology recommends overnight monitoring. CBC shows Hg 9.8. BMP shows Na 1132, BUN 19, glucose 111, Ca 8.3. 04/16 Patient was seen and examined. No acute events overnight. She is medically cleared for discharge. Her BP has been running low to normal. Advised to deanne nue Lisinopril-HCTZ unless symptomatic (HCTZ beneficial if kidney stones are calcium based and Lisinopril is beneficial with history of DM). Continue Crestor and Metformin. General: non toxic, no distress, appears at stated age Derm: warm, dry Head: atraumatic, normocephalic, symmetric Cardiovascular: good distal perfusion in all 4 extremities Lungs: breathing comfortably, no accessory muscle use Psych: Alert, oriented, appropriate affect Acute blood loss anemia Diabetes mellitus Hypertension Dyslipidemia Based on my assessment of this patient, this patient meets a low complexity level of care. Patient has a chronic diagnosis of diabetes mellitus, hypertension, dyslipidemia. Acute blood loss anemia: Unknown baseline. Expected result of surgery. Diabetes mellitus: ISS. Accuchecks ACHS. Hypoglycemic precautions. Metformin 500 mg PO QD. Hypertension: Continue Lisinopril-HCTZ on discharge. Dyslipidemia: Crestor 10 mg PO QD. SCD for DVT prophylaxis. FULL CODE. Decision maker: Daughter I have reviewed the following websphere consultant notes: Urology note I have reviewed the results of the following tests: POC glucose ranging from 112-133. I have ordered the following tests: I have discussed the care of this patient with the following independent historian: I have independently interpreted the following test below: I have discussed the management of this patient with the following physician: Objective - Vital Signs Vital signs: Vital Signs Temp 98.0 F 04/16/23 08:00 Pulse 75 09/01/23 08:00 Resp 14 04/16/23 08:00 BP 113/63 04/16/23 08:00 Pulse Ox 100 04/15/23 23:15 FiO2 Intake & Output 04/15/23 04/16/23 04/16/23 18:59 06:59 18:59 Intake Total 280 650 Output Total 950 900 100 Balance -670 -250 -100 Intake: Oral 280 650 Output: Drainage 400 350 100 Left Posterior Back 400 350 100 Urine 550 550 Uretheral (Clifton) 50 Other: # Voids 1 0 - Labs CBC & Chem 7: 04/15/23 05:45 04/15/23 05:45 Labs: Abnormal Lab Results - Last 24 Hours (Table) 04/15/23 04/15/23 04/15/23 Range/Units 12:05 16:28 23:12 POC Glucose (mg/dL) 133 H 127 H 112 H (70-110) mg/dL 04/16/23 Range/Units 08:04 POC Glucose (mg/dL) 121 H (70-110) mg/dL
== END 2023-04-16 09:10 | disposition home or self-care (01) ==
LOC: OR 06:03 → 4FBP 10:17 → OR 04-16 09:10
PROVIDERS: ATTEND Urology
DX: N20.0 Calculus of kidney (principal); E78.5 Hyperlipidemia, unspecified; E11.9 Type 2 diabetes mellitus without complications; Z98.891 History of uterine scar from previous surgery; Z90.89 Acquired absence of other organs; Z90.49 Acquired absence of other specified parts of digestive tract; Z98.890 Other specified postprocedural states; Z82.49 Family history of ischemic heart disease and other diseases of the circulatory system; Z80.1 Family history of malignant neoplasm of trachea, bronchus and lung; Z79.84 Long term (current) use of oral hypoglycemic drugs; Z79.899 Other long term (current) drug therapy
CPT/HCPCS: 50080; 86900; 86901; 80048; 85027; 86850; 82365; 50432; 74018 ×2; C1769 ×4; C2628; C1729; C1894; J2250; J0330; J1100; J0690; J2405; J3010; J1885 ×3; J2704; Q9967; J1170; J2001; J2371

== ENCOUNTER → 2023-07-06 | Outpatient (CLI) | payer MEDICARE ==
--- NOTE | 2023-07-07 23:56 | MM ---
Reason for Exam: Screening (asymptomatic). Last screening mammogram was performed 12 month(s) ago. Patient History: Menarche at age 16. First Full-Term at age 31. Late child-bearing (after 31). Postmenopausal. Patient used Hormonal Contraceptives for 2 years. Risk Values: Marta 5 year model risk: 2.1%. NCI Lifetime model risk: 7.5%. Prior Study Comparison: 09/21/2019 Bilateral Screening Mammogram, [facility]. 02/25/2021 Bilateral Screening Mammogram, [facility]. 06/18/2022 Bilateral MG 3D screening mammo w/cad, [facility]. Tissue Density: There are scattered fibroglandular densities. Findings: Analyzed By CAD. Chronic bilateral nodularity. There is no suspicious group of microcalcifications or new suspicious mass in either breast. Overall Assessment: Benign, BI-RAD 2 Management: Screening Mammogram of both breasts in 1 year. . Patient should continue monthly self-breast exams. A clinical breast exam by your physician is recommended on an annual basis. This exam should not preclude additional follow-up of suspicious palpable abnormalities. Note on Marta scores and lifetime risk: 1. A Marta score greater than 3% is considered moderate risk. If this is the case, consider specialist referral to assess eligibility for a risk reducing agent. 2. If overall lifetime risk for the development of breast cancer is 20% or higher, the patient may qualify for future screening with alternating mammogram and breast MRI. Electronically signed and approved by: Annabelle Doshi M.D. Radiologist
== END | disposition home or self-care (01) ==
LOC: RADMAMWWP 10:51
PROVIDERS: ATTEND Family Medicine
DX: Z12.31 Encounter for screening mammogram for malignant neoplasm of breast (principal); Z78.0 Asymptomatic menopausal state
CPT/HCPCS: 77063; 77067